=== PATIENT | male | born 1985 | race African-American/Black ===

== ENCOUNTER 2016-07-10 12:45 | Emergency (ER) | payer SELFPAY ==
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
[~2016-07-10 12:45] MED LIST: AMOXICILLIN500 M1 PO; BENADRYL25 M1 PO; COLACE PO; DOXYCYCLINE HY100 M1 PO; IBUPROFEN600 MG PO; MEDROL4 MG/DOSE- PO; PREDNISONE PO; ZANTAC150 M1 PO; ZYRTEC-D TABLE1 EACH PO
== END 2016-07-10 14:00 | disposition home or self-care (01) ==
LOC: CED 12:45
DX: S16.1XXA Strain of muscle, fascia and tendon at neck level, initial encounter (principal); S00.83XA Contusion of other part of head, initial encounter; F17.200 Nicotine dependence, unspecified, uncomplicated; Z79.899 Other long term (current) drug therapy; Y04.0XXA Assault by unarmed brawl or fight, initial encounter; Y92.410 Unspecified street and highway as the place of occurrence of the external cause
CPT/HCPCS: 70450; 72125; 99284

== ENCOUNTER 2016-09-15 20:23 | Emergency (ER) | payer SELFPAY | END 2016-09-15 21:54 | disposition home or self-care (01) | LOC: SED 20:23 | DX: R11.2 Nausea with vomiting, unspecified (principal); R19.7 Diarrhea, unspecified; J45.909 Unspecified asthma, uncomplicated; F17.200 Nicotine dependence, unspecified, uncomplicated | CPT/HCPCS: 99283 ==

== ENCOUNTER 2016-11-07 20:13 | Emergency (ER) | payer SELFPAY ==
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
[2016-11-07] MEDS ORDERED: NO MEDICATIONS (20:31)
== END 2016-11-07 21:41 | disposition home or self-care (01) ==
LOC: SED 20:13
DX: S00.81XA Abrasion of other part of head, initial encounter (principal); S99.911A Unspecified injury of right ankle, initial encounter; V49.00XA Driver injured in collision with unspecified motor vehicles in nontraffic accident, initial encounter; Y92.410 Unspecified street and highway as the place of occurrence of the external cause; J45.909 Unspecified asthma, uncomplicated; Z23 Encounter for immunization
CPT/HCPCS: 73610; 90471; 90715; 99284